=== PATIENT | male | born 1990 | race Two or more races ===

== ENCOUNTER 2016-05-03 01:02 | Emergency (ER) | payer SELFPAY ==
[~2016-05-03] VITALS: Ht 185.4 cm; Wt 81.6 kg
[2016-05-03 01:13] VITALS: BP 130/72
[2016-05-03] MEDS ORDERED: ACETAMINOPHEN 500 MG TABLET PO ONE (02:15)
[2016-05-03] MEDS ORDERED: ONDANSETRON ODT 4 MG TAB.RAPDIS PO ONE (02:15)
--- NOTE | 2016-05-03 02:57 | ED.ADGEN ---
Past Medical History Past Medical History: No Pertinent History Past Surgical History: No Surgical History Alcohol Use: Occasionally Drug Use: None Adult General Chief Complaint Chief Complaint: FLU SYMPTOM HPI HPI Patient is a 25 year old man, with no significant past no history, presents emergency Department with a four-day history of generalized malaise, nasal and chest congestion, headache, sore throat, body aches, nausea, one episode of vomiting and one episode of diarrhea. He denies any sick contacts or exposures, denies any focal weakness, numbness or tingling, states that he used TheraFlu and Tylenol yesterday, last dose of Tylenol was at 2 PM. Patient is afebrile in the emergency department, denies fevers at home. No swelling extremities, no other symptoms reported. Review of Systems Review of Systems Constitutional: Denies fever or chills. [] Generalized malaise. Eyes: Denies change in visual acuity. [] HENT: Denies nasal congestion or sore throat. [] Respiratory: Cough that is nonproductive. Chest tightness with coughing. [] Cardiovascular: Denies chest pain or edema. [] GI: Denies abdominal pain, positive for nausea, no vomiting, bloody stools or diarrhea. [] : Denies dysuria. [] Musculoskeletal: Denies back pain or joint pain. [] Integument: Denies rash. [] Neurologic: Denies headache, focal weakness or sensory changes. [] Endocrine: Denies polyuria or polydipsia. [] Lymphatic: Denies swollen glands. [] Psychiatric: Denies depression or anxiety. [] Current Medications Current Medications Current Medications Medications (Trade) Dose Ordered Sig/Elza Start Time Stop Time Status Last Admin Dose Admin Acetaminophen (Tylenol) 1,000 mg 1X ONCE 05/03/16 02:15 05/03/16 02:47 DC 05/03/16 02:46 1,000 MG Ondansetron HCl (Zofran Odt) 4 mg 1X ONCE 05/03/16 02:15 05/03/16 02:47 DC 05/03/16 02:46 4 MG Allergies Allergies Allergies Coded Allergies Type Severity Reaction Last Updated Verified No Known Drug Allergies 05/03/16 No Physical Exam Physical Exam Constitutional: Well developed, well nourished, no acute distress, non-toxic appearance. [] HENT: Normocephalic, atraumatic, bilateral external ears normal, oropharynx moist, no oral exudates, nose normal. [] Eyes: PERRLA, EOMI, conjunctiva normal, no discharge. [] Neck: Normal range of motion, no tenderness, supple, no stridor. [] Cardiovascular:Heart rate regular rhythm, no murmur [] Lungs & Thorax: Bilateral breath sounds clear to auscultation [] Abdomen: Bowel sounds normal, soft, no tenderness, no masses, no pulsatile masses. [] Skin: Warm, dry, no erythema, no rash. [] Back: No tenderness, no CVA tenderness. [] Extremities: No tenderness, no cyanosis, no clubbing, ROM intact, no edema. [] Neurologic: Alert and oriented X 3, normal motor function, normal sensory function, no focal deficits noted. [] Psychologic: Affect normal, judgement normal, mood normal. [] Current Patient Data Vital Signs Vital Signs Date Time Temp Pulse Resp B/P Pulse Ox O2 Delivery O2 Flow Rate FiO2 05/03/16 01:13 98.8 93 20 95 Room Air 98.8 Lab Values Laboratory Tests Test 05/03/16 02:29 Influenza Type A Antigen Negative (NEGATIVE) Influenza Type B Antigen Negative (NEGATIVE) EKG EKG ECG: Sinus rhythm, 80 beats minute, sinus rhythm, no ectopy. Radiology/Procedures Radiology/Procedures X-ray: Two-view: Patient noted to have mildly increased initial markings bilaterally, no evidence of acute infiltrates or effusions, no bony abnormalities identified, no pneumothorax. As interpreted by me. [] Course & Med Decision Making Course & Med Decision Making Pertinent Labs and Imaging studies reviewed. (See chart for details) well-appearing, with normal vital signs in the ED, afebrile without antipyretics. Examination is consistent with a viral infection. Flu swab is negative, chest x-rays unremarkable, no evidence of lower airspace disease on imaging, on reevaluation patient is feeling better after receiving Tylenol and Tessalon Perle in the ED. He is tolerating medications without issue. Importance of pushing fluids, and avoiding trying to eat solid foods or the rhonchi and the foods during illness discussed with patient at bedside, patient voiced understanding, use of supportive care including antipyretics, and concerning symptoms that prompt return to the ED discussed. Patient voiced understanding and agreement. Discharged home in stable condition with family with work note for the next 2-3 days, with plan as above. Dragon Disclaimer Dragon Disclaimer This electronic medical record was generated, in whole or in part, using a voice recognition dictation system. Departure Impression: Primary Impression: Viral illness Disposition: HOME, SELF-CARE Condition: IMPROVED Scripts Benzonatate (Tessalon Perle)100 Mg Dbzeory593 Mg PO TID PRN COUGH #14 CAP Prov:NOLAN STEPHEN DO 05/03/16 NOLAN STEPHEN DO May 03, 2016 02:57
[2016-05-03 03:32] LABS: OBC FLU VALID
[2016-05-03] MEDS ORDERED: BENZ100C PO (03:37)
--- NOTE | 2016-05-03 10:12 | RAD ---
Chest, 2 views, 05/03/2016: History: Cough The heart size is normal. There is an opacity projected over the anterior aspect of the mid chest on the lateral view which probably lies in the right upper lobe projected over the right hilum on the PA view. The appearance suggests a nodule or patch of infiltrate. There are also ill-defined opacities in the medial segment of the right middle lobe partially obscuring the right heart border. The left chest is clear. There is no evidence of pleural fluid. IMPRESSION: Mild patchy right lung opacities as described above suggesting pneumonia. Radiographic follow-up is suggested. Note: The findings were called to personnel in the [facility] ER at 10:09 AM on 05/03/2016.
== END 2016-05-03 04:10 | disposition home or self-care (01) ==
LOC: ER 01:02
DX: B34.9 Viral infection, unspecified (principal); R53.81 Other malaise; J02.9 Acute pharyngitis, unspecified; R19.7 Diarrhea, unspecified
CPT/HCPCS: 71020; 87804; 99285; Q0162